=== PATIENT | male | born 1995 | race African-American/Black ===

== ENCOUNTER 2019-10-28 14:24 | Emergency (ER) | payer SELFPAY ==
--- NOTE | 2019-10-28 14:55 | ER Document Report ---
ED ENT - General Chief Complaint: Sore Throat Stated Complaint: SORE THROAT Time Seen by Provider: 10/28/19 14:34 Notes: CHIEF COMPLAINT: Sore throat for 1 day HPI: 24-year-old male presenting to the emergency department complaining of sore throat for 1 day. No voice change. No fever. No cough. No shortness of breath. No recent ill contacts ROS: See HPI - all other systems were reviewed and are otherwise negative Constitutional: no fever Eyes: no drainage, no blurred vision ENT: no runny nose, + sore throat Cardiovascular: no chest pain Resp: no SOB, no cough GI: no vomiting, no diarrhea, no abdominal pain : no dysuria Integumentary: no rash Allergy: no hives Musculoskeletal: no extremity pain or swelling Neurological: no numbness/tingling, no weakness MEDICATIONS: I agree with the patient medications as charted by the RN. ALLERGIES: I agree with the allergies as charted by the RN. PAST MEDICAL HISTORY/PAST SURGICAL HISTORY: Reviewed and agree as charted by RN. SOCIAL HISTORY: Reviewed and agree as charted by RN. FAMILY HISTORY: No significant familial comorbid conditions directly related to patient complaint EXAM: Reviewed vital signs as charted by RN. CONSTITUTIONAL: Alert and oriented and responds appropriately to questions. Well-appearing; well-nourished HEAD: Normocephalic; atraumatic EYES: PERRL; Conjunctivae clear, sclerae non-icteric ENT: normal nose; no rhinorrhea; moist mucous membranes; mild pharyngeal erythema without exudate, no uvula edema or deviation, + bilateral 99% on room air not hypoxic tonsillar hypertrophy, phonation normal NECK: Supple without meningismus; non-tender; no cervical lymphadenopathy, no masses CARD: RRR; no murmurs, no clicks, no rubs, no gallops; symmetric distal pulses RESP: Normal chest excursion without splinting or tachypnea; breath sounds clear and equal bilaterally; no wheezes, no rhonchi, no rales, pulse oximetry ABD/GI: non-distended BACK: The back appears normal and is non-tender to palpation, there is no CVA tenderness EXT: Normal ROM in all joints; no cyanosis, no effusions, no edema SKIN: Normal color for age and race; warm; dry; good turgor NEURO: Moves all extremities equally; Motor and sensory function intact PSYCH: The patient's mood and manner are appropriate. Grooming and personal hygiene are appropriate. MDM: 24-year-old male with sore throat for 1 day. Rapid strep sent by nursing TRAVEL OUTSIDE OF THE [place] IN LAST 30 DAYS: No - Related Data Allergies/Adverse Reactions: No Known Allergies Allergy (Verified 10/28/19 14:33) Past Medical History - Social History Smoking Status: Current Every Day Smoker Chew tobacco use (# tins/day): No Frequency of alcohol use: Occasional Drug Abuse: None Family History: Reviewed & Not Pertinent Patient has suicidal ideation: No Patient has homicidal ideation: No - Immunizations Hx Diphtheria, Pertussis, Tetanus Vaccination: Yes Physical Exam - Vital signs Vitals: Temp Pulse Resp BP Pulse Ox 99.0 F 90 18 131/80 H 96 10/28/19 14:33 10/28/19 14:33 10/28/19 14:33 10/28/19 14:33 10/28/19 14:33 Course - Re-evaluation Re-evalutation: 10/28/19 15:13 Rapid strep is negative likely a viral etiology will discharge home to follow-up with PCP - Vital Signs Vital signs: Temp Pulse Resp BP Pulse Ox 99.0 F 90 18 131/80 H 96 10/28/19 14:33 10/28/19 14:33 10/28/19 14:33 10/28/19 14:33 10/28/19 14:33 Discharge - Discharge Clinical Impression: Viral pharyngitis Condition: Stable Disposition: HOME, SELF-CARE Instructions: Sore Throat ([facility]) Additional Instructions: 1. Rapid strep test today is negative this is likely viral in nature 2. take Motrin/Tylenol consistently for pain and fever 3. hydrate well at home with fluids/juices 4. recheck with your PCP for further evaluation and treatment, call for appt. 5. return to the ED for any difficulty swallowing or worsening condition 6. warm salt water gargles for throat discomfort 3 times daily
[2019-10-28 15:59] VITALS: BP 145/88
== END 2019-10-28 15:57 | disposition home or self-care (01) ==
LOC: ER 14:24
DX: J02.9 Acute pharyngitis, unspecified (principal); F17.200 Nicotine dependence, unspecified, uncomplicated
CPT/HCPCS: 87070; 87880; 99283

== ENCOUNTER 2019-12-27 08:53 | Emergency (ER) | payer SELFPAY ==
--- NOTE | 2019-12-27 09:34 | ER Document Report ---
ED ENT - General Chief Complaint: Sore Throat Stated Complaint: SORE THROAT Time Seen by Provider: 12/27/19 09:14 Notes: CHIEF COMPLAINT: Sore throat for 2 days HPI: 24-year-old male presenting to the emergency department complaining of a recurrent sore throat for 2 days. Patient states that he was evaluated 2 weeks ago had a negative strep test was not placed on antibiotics sore throat seemed to get slightly better but then worsened again yesterday. No fever, complains of mild voice change ROS: See HPI - all other systems were reviewed and are otherwise negative Constitutional: no fever Eyes: no drainage, no blurred vision ENT: no runny nose, + sore throat Cardiovascular: no chest pain Resp: no SOB, no cough GI: no vomiting, no diarrhea, no abdominal pain : no dysuria Integumentary: no rash Allergy: no hives Musculoskeletal: no extremity pain or swelling Neurological: no numbness/tingling, no weakness MEDICATIONS: I agree with the patient medications as charted by the RN. ALLERGIES: I agree with the allergies as charted by the RN. PAST MEDICAL HISTORY/PAST SURGICAL HISTORY: Reviewed and agree as charted by RN. SOCIAL HISTORY: Reviewed and agree as charted by RN. FAMILY HISTORY: No significant familial comorbid conditions directly related to patient complaint EXAM: Reviewed vital signs as charted by RN. CONSTITUTIONAL: Alert and oriented and responds appropriately to questions. Well-appearing; well-nourished HEAD: Normocephalic; atraumatic EYES: PERRL; Conjunctivae clear, sclerae non-icteric ENT: normal nose; no rhinorrhea; moist mucous membranes; there is pharyngeal erythema with exudate bilateral, no uvula edema or deviation, positive tonsillar hypertrophy, phonation normal. No soft palate swelling is noted NECK: Supple without meningismus; non-tender; positive cervical lymphadenopathy, no masses CARD: RRR; no murmurs, no clicks, no rubs, no gallops; symmetric distal pulses RESP: Normal chest excursion without splinting or tachypnea; breath sounds clear and equal bilaterally; no wheezes, no rhonchi, no rales, pulse oximetry 98% on room air not hypoxic ABD/GI: Normal bowel sounds; non-distended; soft, non-tender, no rebound, no guarding; no palpable organomegaly or masses. BACK: The back appears normal and is non-tender to palpation, there is no CVA tenderness EXT: Normal ROM in all joints; no cyanosis, no effusions, no edema SKIN: Normal color for age and race; warm; dry; good turgor; no acute lesions noted NEURO: Moves all extremities equally; Motor and sensory function intact PSYCH: The patient's mood and manner are appropriate. Grooming and personal hygiene are appropriate. MDM: 24-year-old male sore throat complaint for 1 day had sore throat 2 weeks ago states he had negative strep test. We will recheck strep, will also check mono test TRAVEL OUTSIDE OF THE [place] IN LAST 30 DAYS: No - Related Data Allergies/Adverse Reactions: No Known Allergies Allergy (Verified 10/28/19 14:33) Past Medical History - Social History Smoking Status: Unknown if Ever Smoked Family History: Reviewed & Not Pertinent - Immunizations Hx Diphtheria, Pertussis, Tetanus Vaccination: Yes Physical Exam - Vital signs Vitals: Temp Pulse Resp BP Pulse Ox 98.8 F 83 20 142/85 H 99 12/27/19 08:59 12/27/19 08:59 12/27/19 08:59 12/27/19 08:59 12/27/19 08:59 Course - Re-evaluation Re-evalutation: 12/27/19 10:20 Patient strep and mono were both negative. Given the recurrence of his symptoms will cover test the patient. But I will also plan to place him on antibiotics for possible pharyngitis - Vital Signs Vital signs: Temp Pulse Resp BP Pulse Ox 98.8 F 83 20 142/85 H 99 12/27/19 10:12 12/27/19 08:59 12/27/19 08:59 12/27/19 08:59 12/27/19 08:59 Discharge - Discharge Clinical Impression: Person under investigation for COVID-19 Pharyngitis Qualifiers: Pharyngitis/tonsillitis etiology: unspecified etiology Qualified Code(s): J02.9 - Acute pharyngitis, unspecified Condition: Stable Disposition: HOME, SELF-CARE Additional Instructions: 1. medicines as prescribed 2. take Motrin/Tylenol consistently for pain and fever 3. hydrate well at home with fluids/juices 4. recheck with your PCP for further evaluation and treatment, call for appt. 5. return to the ED for any difficulty swallowing or worsening condition 6. warm salt water gargles for throat discomfort 3 times daily 7. You are considered a person under investigation at this time, quarantine at home until you have a negative COVID test Prescriptions: Azithromycin [Zithromax 250 mg Tablet] 250 mg PO ASDIR PRN #6 tablet PRN Reason: Forms: Return to Work Referrals: EB HICKS MD [ACTIVE STAFF] - Follow up as needed
[2019-12-27 11:11] VITALS: BP 118/83
== END 2019-12-27 11:09 | disposition home or self-care (01) ==
LOC: ER 08:53
DX: J02.9 Acute pharyngitis, unspecified (principal); Z20.828 Contact with and (suspected) exposure to other viral communicable diseases
CPT/HCPCS: 99283; 36415; 87070; 87880; 87635; 87077; 86308; C9803